=== PATIENT | male | born 1940 | race Caucasian/White ===

== ENCOUNTER 2017-07-16 08:09 | Emergency (ER) | payer OTHER, MEDICARE ==
[~2017-07-16] VITALS: Ht 172.7 cm; Wt 98.0 kg
[2017-07-16 09:29] LABS: APPEARANCE CLEAR ((CLEAR)); BILIRUBIN NEGATIVE; BLOOD NEGATIVE; COLOR STRAW ((YELLOW)); GLUCOSE (STRIP) NEGATIVE; KETONES NEGATIVE; LEUKOCYTES NEGATIVE; NITRITE NEGATIVE; PROTEIN (STRIP) NEGATIVE; SPECIFIC GRAVITY 1.009 (1.000-1.030); UROBILINOGEN 0.2 MG/DL (0.2-1.0)
[2017-07-16 09:30] LABS: BASOPHIL (%) 0.5 % (0-1); EOSINOPHIL COUNT 0.4 K/uL (0-0.3); HEMATOCRIT 38.4 % (38.0-50.0); HEMOGLOBIN 13.2 G/DL (12.5-16.6); IMMATURE GRANULOCYTE (%) 1.1 % (0.0-0.7); LYMPHOCYTE (%) 22.8 % (15-42); LYMPHOCYTE COUNT 1.7 K/uL (1.0-2.8); MCHC 34.4 G/DL (30.0-36.0); MCV 87.3 FL (86-99); MONOCYTE (%) 11.9 % (3-12); MONOCYTE COUNT 0.9 K/uL (0-0.8); NEUTROPHIL (%) 58.7 % (45-76); NEUTROPHIL COUNT 4.5 K/uL (1.8-6.4); PLATELET COUNT 173 K/uL (156-360); RBC DIS.WIDTH-CV 13.3 % (11.8-14.6); RBC DIS.WIDTH-SD 42.5 % (39-53); WHITE BLOOD COUNT 7.6 K/uL (4.1-10.2)
[2017-07-16 09:45] LABS: CHLORIDE 106 mEq/L (99-109); POTASSIUM 3.8 mEq/L (3.7-5.4); SODIUM 141 mEq/L (136-147)
[2017-07-16 09:46] LABS: GLUCOSE 100 mg/dL (70-99)
[2017-07-16 09:50] LABS: CREATININE 0.9 mg/dL (0.6-1.3); GFR ESTIMATE (CALCULATED) > 59 mL/min/ (58.99-99999)
[2017-07-16 09:51] LABS: UREA NITROGEN (BUN) 17 mg/dL (9-23)
[2017-07-16 12:11] VITALS: BP 155/88
== END 2017-07-16 12:13 | disposition home or self-care (01) ==
LOC: EME 08:09
PROVIDERS: Emergency Medicine
DX: R25.1 Tremor, unspecified (principal); I10 Essential (primary) hypertension; M54.5 Low back pain; G89.29 Other chronic pain
CPT/HCPCS: 80048; 81003; 85025; 99281; 99285; G8978 GP CI; G8979 GP CH; G8980 GP CI; G8987 GO CJ; G8988 GO CH; G8989 CJ